=== PATIENT | female | born 1950 | race Caucasian/White ===

== ENCOUNTER 2019-08-07 21:39 | Emergency (ER) | payer MEDICARE, BC ==
--- OUTSIDE RECORDS SUMMARY | 2019-08-07 21:57 | XMS REPORT | Continuity of Care Document ---
:1950 External Reference #:[id number] Author Name Filomena Best M.D. 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 Onset: 11/21/2017 Social History Type Date Description Comments Sex Unknown Tobacco Use Start: Unknown Nonsmoker ETOH Use Social Alcohol Tobacco Use Start: Unknown Patient has never smoked Allergies, Adverse Reactions, Alerts Active Allergies Reaction Severity Comments Date Seldane HIVES 08/13/1998 Clarithromycin Lack Of Taste Insomnia 12/29/2017 Medications Active Medications SIG Qnty Indications Ordering Provider Date Cefdinir 1 by mouth 14caps N39.0 Filomena Best, 07/12/2019 300mg Capsules twice daily M.D. Calcium-D 2 po qd Family Medicine 11/25/2009 [id number] Vitamin C 1 po qd Family Medicine 11/25/2009 500mg Chewtabs [facility] Multivitamins 1 po qd Family Medicine 11/25/2009 Tablets [facility] Iron 65MG Unknown Tablets Magnesium Carbonate Unknown Granules Potassium Gluconate Unknown 550(90K) mg Tablets History Medications Augmentin 1 by mouth twice 20tabs Kalin Wells, 03/20/2019 - 500-125mg a day with meals M.D. 07/12/2019 Tablets Immunizations CPT Code Status Date Vaccine Lot # [id number] Given 08/11/2018 Influenza Vac, Quadriv[place], [place] [id number] Given 04/22/2016 Pneumococcal Immunization [id number] Given 10/25/2014 Pneumococcal Conjugate Vacc-13 [id number] Given 11/25/2009 Zostivax [id number] Vital Signs Date Vital Result Comment 07/12/2019 11:30am BP Systolic 120 mmHg BP Diastolic 64 mmHg Heart Rate 96 /min Body Temperature 100.0 F Height 64 inches 5'4" Weight 127.00 lb BMI (Body Mass Index) 21.8 kg/m2 03/20/2019 1:06pm BP Systolic 120 mmHg BP Diastolic 78 mmHg Heart Rate 72 /min Body Temperature 98.1 F Respiratory Rate 16 /min Height 64 inches 5'4" Weight 127.00 lb BMI (Body Mass Index) 21.8 kg/m2 Results Test Date Facility Test Result H/L Range Note Ua - Micro (a) 03/20/2019 Family Medicine Appearance clear (607)- - Color yellow Glucose, Urine (Fma/CMC/CTX) neg Bilirubin neg Ketones trace SP Grav <=1.005 Blood large PH 5.5 Protein ssa 1+ Urobil 0.2 Nitrite neg Leukocytes (Fma/CMC/Centrex) large Hyaline - /Lpf Granular - /Lpf WBC (a,Centrex) >100 RBC >20 Mucus (Fma/CBC/Centrex) small amt /Lpf Epith few /Lpf Bacteria 2+ /Hpf Amorphous (Fma/CMC/Centrex) - /Lpf Crystals, Fluid (Fma/CMC/CTX) - Z#Comments - CBC Electronic a 01/25/2019 Coleman Nieves([facility]) WBC 5.2 x10^3/UL 4.0- 10.0 RBC 4.66 x10^6/UL 3.93-6.00 HGB 12.7 g/dL 12.0-17.0 HCT 40 % 35-50 MCV 85.0 fL 80.0-95.0 MCH 27.3 pg 25.6-32.2 MCHC 32.2 g/dL 32.2-36.0 RDW-CV 12.6 % 11.6-14.4 PLT 243 x10^3/UL 163-400 MPV 8.5 fL Low 9.4-12.4 Lina# 3.21 x10^3/UL 1.56-6.13 Lymph# 1.36 x10^3/UL 1.18-3.74 [place]# 0.46 x10^3/UL 0.24-0.82 Eos # 0.2 x10^3/UL 0.0-0.5 Baso # 0.03 x10^3/UL 0.01-0.08 Lina% 61.4 % 34.0-70.0 Lymph % 26.1 % 20.0-52.0 [place]% 8.8 % 5.0-12.0 Eos% 2.9 % 0.7-7.0 Baso% 0.6 % 0.1-1.2 Comprehensive Metabolic 01/25/2019 Jared Pickett(fma) Sodium 142 mEq/L 134-149 Prof Potassium 5.2 mEq/L 3.6-5.5 Chloride 101 mEq/L 94-112 Carbon Dioxide 28 mEq/L 21-32 Glucose 79 mg/dL 70-105 BUN 16 mg/dL 6-26 Creatinine 0.7 mg/dL 0.6-1.4 BUN/Creat Ratio 22.9 CALC 8.0-36.0 Calcium 10.2 mg/dL 8.6-10.2 Total Protein 7.1 g/dL 6.4-8.3 Albumin 4.9 g/dL 3.8-5.5 Globulin 2.2 g/dL 2.0-4.8 A/G Ratio 2.2 CALC 0.6-2.3 Alk. Phosphatase 57 U/L 30-110 Alt (SGPT) 16 U/L 7-35 Ast (Sgot) 22 U/L 5-34 Total Bilirubin 0.6 mg/dL 0.2-1.3 GFR Non- >60 ml/min/1.73m^ >=60 GFR >60 ml/min/1.73m^ >=60 Laboratory test 01/25/2019 Jared Pickett(fma) Free T3 2.70 pg/mL 2.00- 4.90 finding Free T4 1.09 ng/dL 0.75-1.54 Lipid Profile 01/25/2019 Jared Pickett(fma) Cholesterol 220 mg/dL High 120-200 Triglycerides 54 mg/dL 30-200 HDL Cholesterol 92 mg/dL High 30-85 LDL (Calculated) 117 CALC 0-129 VLDL Cholesterol 11 mg/dL 0-50 HDL Risk Factor 2.4 CALC 0.0-4.4 Laboratory test finding 01/25/2019 Coleman Nieves(fma) TSH 2.19 mIU/L 0.50-6.00 Procedures Date Code Description Status 05/07/2019 50783 Dxa Bone Density Study One Or More Sites Axial Completed Skeleton 03/20/2019 65742 Electrocardiogram Complete Completed 01/31/2019 [id number] Mammogram Completed 02/02/2018 [id number] Mammogram Completed 01/16/2018 [id number] Mammogram Completed 11/04/2016 [id number] Mammogram Completed 10/31/2015 [id number] Mammogram Completed 01/06/2015 [id number] Colonoscopy Completed 10/24/2014 [id number] Mammogram Completed 11/14/2013 [id number] Bone Mineral Density Test Completed 10/23/2013 [id number] Mammogram Completed 12/22/2011 [id number] Mammogram Completed 12/09/2010 [id number] Mammogram Completed 12/05/2009 [id number] Mammogram Completed 12/03/2008 [id number] Mammogram Completed 09/30/2006 [id number] Mammogram Completed Medical Devices Description No Information Available Encounters Type Date Location Provider Dx Diagnosis Office Visit 03/20/2019 [facility] Office Kalin Laws R82.90 Unspecified 1:00p [facility] abnormal findings in urine Z00.00 Encntr for general adult medical exam w/o abnormal findings J01.90 Acute sinusitis, unspecified N39.0 Urinary tract infection, site not specified Office Visit 01/25/2019 10:00a [facility] Office Allyssa Orozco Z12.31 Encntr screen RN DOCUMENT IMPROVEMENT mammogram for malignant neoplasm of breast E78.2 Mixed hyperlipidemia Assessments Date Code Description Provider 07/12/2019 N39.0 Urinary tract infection, site not Filomena Best M.D. specified 05/07/2019 M85.851 Other specified disorders of bone density Kalin Wells M.D. and structure, right thigh 05/07/2019 N95.1 Menopausal and female climacteric states Kalin Wells M.D. 03/20/2019 R82.90 Unspecified abnormal findings in urine Kalin Wells M.D. 03/20/2019 Z00.00 Encounter for general adult medical Kalin Wells M.D. examination without abno 03/20/2019 J01.90 Acute sinusitis, unspecified Kalin Wells M.D. 03/20/2019 N39.0 Urinary tract infection, site not Kalin Wells M.D. specified 01/25/2019 Z12.31 Encounter for screening mammogram for MARLENI Ramirez malignant neoplasm of 01/25/2019 E78.2 Mixed hyperlipidemia MARLENI Ramirez Plan of Treatment 07/12/2019 - Filomena Best M.D.N39.0 Urinary tract infection, site not specifiedNew Medication:Cefdinir 300 mg - 1 by mouth twice dailyNew Labs:Ua - Micro (Fma), Ordered: 07/12/19Urine C&S If Indicated, Ordered: Comments:tylenol and or ibuprofen is ok. eat plenty of yogurt.AllComments: Medication Management Patient Understands medications she's taking? Yes No Are there Barriers to Adherence? Yes No Has the patient been asked about herbal supplements and therapies, and OTC meds? Yes No Functional Status Description No Information Available Mental Status Description No Information Available Referrals Refer to Reason for Referral Status [facility]t [facility] [place] [id number] [phone]
--- OUTSIDE RECORDS SUMMARY | 2019-08-07 21:57 | XMS REPORT | Continuity of Care Document ---
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 07/12/2019 Tablets Immunizations CPT Code Status Date Vaccine Lot # [id number] Given 08/11/2018 Influenza Vac, Quadriv[place], [place] [address] Given 04/22/2016 Pneumococcal Immunization [id number] Given 10/25/2014 Pneumococcal Conjugate Vacc-13 [id number] [id number] Given 11/25/2009 Zostivax [id number] Vital Signs Date Vital Result Comment 08/06/2019 3:21pm BP Systolic 138 mmHg BP Diastolic 78 mmHg Heart Rate 100 /min Body Temperature 97.1 F Respiratory Rate 20 /min Weight 129.00 lb 07/12/2019 11:30am BP Systolic 120 mmHg BP Diastolic 64 mmHg Heart Rate 96 /min Body Temperature 100.0 F Height 64 inches 5'4" Weight 127.00 lb BMI (Body Mass Index) 21.8 kg/m2 Results Test Date Facility Test Result H/L Range Note Urine Culture And 07/12/2019 [facility] Urine Culture SEE RESULT 1, 2 Sensitivities BELOW Ua - Micro (a) 07/12/2019 Family Medicine Appearance DARK YELLOW (607)- - Color SL CLOUDY Glucose, Urine (Fma/CMC/CTX) NEG Bilirubin ICTO NEG Ketones >=160MG/DL SP Grav 1.020 Blood LARGE PH 5.5 Protein 1+ SSA Urobil 1.0 Nitrite POS Leukocytes (Fma/CMC/Centrex) SMALL Hyaline - /Lpf Granular - /Lpf WBC (Fma,Centrex) 10-15 RBC 10-15 Mucus (Fma/CBC/Centrex) - /Lpf Epith FEW /Lpf Bacteria 2+ /Hpf Amorphous (Fma/CMC/Centrex) - /Lpf Crystals, Fluid (Fma/CMC/CTX) - Z#Comments - Ua - Micro ([facility]) 03/20/2019 [facility] Medicine Appearance clear (607)- - Color yellow Glucose, Urine (Fma/CMC/CTX) neg Bilirubin neg Ketones trace SP Grav <=1.005 Blood large PH 5.5 Protein ssa 1+ Urobil 0.2 Nitrite neg Leukocytes (Fma/CMC/Centrex) large Hyaline - /Lpf Granular - /Lpf WBC (Fma,Centrex) >100 RBC >20 Mucus (Fma/CBC/Centrex) small amt /Lpf Epith few /Lpf Bacteria 2+ /Hpf Amorphous (Fma/CMC/Centrex) - /Lpf Crystals, Fluid (Fma/CMC/CTX) - Z#Comments - 1 [id number] 2 SEE RESULT BELOW Name: PHYLLIS ADAMS : [address]: Filomena Best MD Acct: [id number] Unit: [id number] AGE: 69 Location: [facility] Re07/12/19 SEX: F Status: REG REF SPEC: [id number] GRADY: 07/12/19-13[address] [facility] DR: Filomena Best MD REQ: [id number] RECD: 07/12/19 STATUS: COMP _ SOURCE: URINE SPDESC: ORDERED: Urine Culture COMMENTS: [id number] Procedure Result Reported Site Urine Culture Final 07/14/19- 0815 ML Organism 1 ESCHERICHIA COLI [place] Count >100,000 (Many) CFU/ML 1. ESCHERICHIA COLI M.I.C. RX --------- ------ Ampicillin 4 S Cefazolin <=4 S Cefepime <=1 S Ceftriaxone <=1 S Ciprofloxacin <=0.25 S Gentamicin <=1 S Levofloxacin <=0.12 S Meropenem <=0.25 S Nitrofurantoin <=16 S Tetracycline <=1 S Pipercillin/Tazobactam <=4 S Trimethoprim/Sulfamethoxazole <=20 S Amoxicillin/Clavulanic Acid <=2 S Aztreonam <=1 S Contact the Microbiology Department for any additional antibiotic reporting. * ML - Main Lab . END OF REPORT DEPARTMENT OF PATHOLOGY, [address] [place] [address] Daniel Shine M.D. Director [facility] # [id number] Procedures Date Code Description Status 05/07/2019 95048 Dxa Bone Density Study One Or More Sites Axial Completed Skeleton 03/20/2019 95800 Electrocardiogram Complete Completed 01/31/2019 [id number] Mammogram Completed 02/02/2018 [id number] Mammogram Completed 01/16/2018 [id number] Mammogram Completed 11/04/2016 [id number] Mammogram Completed 10/31/2015 [id number] Mammogram Completed 01/06/2015 [id number] Colonoscopy Completed 10/24/2014 [id number] Mammogram Completed 11/14/2013 [id number] Bone Mineral Density Test Completed 10/23/2013 [id number] Mammogram Completed 12/22/2011 [id number] Mammogram Completed 12/09/2010 [id number] Mammogram Completed 12/05/2009 [id number] Mammogram Completed 12/03/2008 [id number] Mammogram Completed 09/30/2006 [id number] Mammogram Completed Medical Devices Description No Information Available Encounters Type Date Location Provider Dx Diagnosis Office Visit 07/12/2019 [facility] Office Filomena Chauhan N39.0 Urinary tract 11:10a [facility] infection, site not specified Office Visit 03/20/2019 [facility] Office Kalin Laws R82.90 Unspecified 1:00p [facility] Wells abnormal findings in urine Z00.00 Encntr for general adult medical exam w/o abnormal findings J01.90 Acute sinusitis, unspecified N39.0 Urinary tract infection, site not specified Assessments Date Code Description Provider 08/06/2019 M25.531 Pain in right wrist KAYODE Luo 07/12/2019 N39.0 Urinary tract infection, site not [...] infection, site not Kalin Wells M.D. specified Plan of Treatment 08/06/2019 - Cielo Genao, PAM25.531 Pain in right wristComments:Ice and Ibuprofen for the next few days. Call with any increase in pain, redness, or swelling. Emergency room for immediate redness, swelling. Follow up next week if swelling and bruising hasn't resolved.AllComments:PCMHMedication Management Patient Understands medications he's taking? Yes Are there Barriers to Adherence? No Has the patient been asked about herbal supplements and therapies, and OTC meds? Yes Care Plan1. Patient has been queried about patient's goals/preferences and functional/lifestyle goals at relevant visits. Yes If relevant, describe: N/A2. Treatment goals as explained to the patient: above3. Are there barriers to meeting treatment goals? No If Yes , please describe:4. Self-Management goals as described to the patient: Yes As always, we strongly encourage a healthy diet and making physical activity a part of your every day life. If you have questions about how or where to start, please contact the office. Functional Status Description No Information Available Mental Status Description No Information Available Referrals Refer to Reason for Referral Status Appt Date [facility] hearing evaluation Scheduled 05/03/[address] [place] [id number] [phone]
--- NOTE | 2019-08-08 00:32 | ED ---
Upper Extremity Pain - HPI Summary HPI Summary: 69-year-old female presents with redness to right wrist today. States that she injured her wrist on Tuesday. She states she was told that it was not broken. Told to return if develop any redness. Denies a fevers or chills. Has bruising also noted to the wrist. Has full range of motion with pain. She states that she landed on her outstretched arm. No numbness tingling. Is right -handed. not on any blood thinners. - History of Current Complaint Chief Complaint: EDExtremityUpper Stated Complaint: RT WRIST INJURY PER PT Time Seen by Provider: 08/07/19 21:54 - Allergies/Home Medications Allergies/Adverse Reactions: Allergies Allergy/AdvReac Type Severity Reaction Status Date / Time Terfenadine [From Seldane] Allergy Unknown Verified 01/03/15 11:41 Reaction Details PMH/Surg Hx/FS Hx/Imm Hx Endocrine/Hematology History: Denies: Hx Anticoagulant Therapy - Cancer History Hx Chemotherapy: No Hx Radiation Therapy: No Infectious Disease History: No Infectious Disease History: Denies: Traveled Outside the [place] in Last 30 Days - Social History Alcohol Use: Daily Alcohol Amount: 2 drinks Substance Use Type: Reports: None Smoking Status (MU): Former Smoker Review of Systems Negative: Fever Negative: Chest Pain Negative: Shortness Of Breath Positive: Rash All Other Systems Reviewed And Are Negative: Yes Physical Exam Triage Information Reviewed: Yes Vital Signs On Initial Exam: Initial Vitals Temp Pulse Resp BP Pulse Ox 97.9 F 88 16 149/75 99 08/07/19 21:41 08/07/19 21:41 08/07/19 21:41 08/07/19 21:41 08/07/19 21:41 Vital Signs Reviewed: Yes Appearance: Positive: Well-Appearing Skin: Positive: Warm, Dry, Other - erythema with ecchymosis that is warm to touch over ulnar aspect of right wrist Head/Face: Positive: Normal Head/Face Inspection Eyes: Positive: Normal, Conjunctiva Clear ENT: Positive: Pharynx normal Respiratory/Lung Sounds: Positive: Clear to Auscultation, Breath Sounds Present Cardiovascular: Positive: Normal, RRR Musculoskeletal: Positive: Strength/ROM Intact - right wrist, Other - erythema along dorsum of right wrist, good pulses, ecchymosis noted to wrist Neurological: Positive: Normal Psychiatric: Positive: Normal Diagnostics - Vital Signs Vital Signs Temp Pulse Resp BP Pulse Ox 08/07/19 21:41 97.9 F 88 16 149/75 99 - Laboratory Lab Statement: Any lab studies that have been ordered have been reviewed, and results considered in the medical decision making process. - Radiology wrist Radiology Interpretation Completed By: ED Physician Summary of Radiographic Findings: no fracture - Ultrasound No standard instances Ultrasound Interpretation Completed By: Radiologist Summary of Ultrasound Findings: no DVT Course/Dx - Course Course Of Treatment: 69-year-old female presents with redness to right wrist today. States that she injured her wrist on Tuesday. She states she was told that it was not broken. Told to return if develop any redness. Denies a fevers or chills. Has bruising also noted to the wrist. Has full range of motion with pain. She states that she landed on her outstretched arm. No numbness tingling. Is right-handed. not on any blood thinners. On exam has tenderness over ulnar aspect of right wrist. Has some erythema on the dorsum of the right wrist. Also some bruising the area. Erythema warm to touch. Ultrasound shows no DVT. X-ray shows no fracture. Discussed could be just bruising or cellulitis. We'll treat as potential cellulitis with Keflex. Told to follow up primary. Patient understands agrees the plan. - Diagnoses Differential Diagnosis/HQI/PQRI: Positive: Contusion, Other - dvt, cellulitis Provider Diagnoses: Cellulitis of right arm Discharge ED - Sign-Out/Discharge Documenting (check all that apply): Patient Departure Patient Received Moderate/Deep Sedation with Procedure: No - Discharge Plan Condition: Good Disposition: HOME Prescriptions: Cephalexin CAP* [Keflex CAP*] 500 mg PO BID #13 cap Patient Education Materials: Cellulitis (ED) Referrals: Kalin Wells MD [Primary Care Provider] - Additional Instructions: redness could be just bruising or cellulitis so will treat as cellulitis as this time Take Keflex twice a day for 7 days Follow up with primary within 3 days Return to ED if develop fever, area of redness spreads, or any new or worsening symptoms - Billing Disposition and Condition Condition: GOOD Disposition: Home
[2019-08-08] MEDS ORDERED: Cephalexin CAP* 500 MG PO ONE (01:55)
[2019-08-08 02:25] VITALS: BP 124/75
== END 2019-08-08 02:10 | disposition home or self-care (01) ==
LOC: ED 21:39
DX: L03.113 Cellulitis of right upper limb (principal); Z87.891 Personal history of nicotine dependence; Z88.8 Allergy status to other drugs, medicaments and biological substances; M79.601 Pain in right arm
CPT/HCPCS: 99282; A9270-GY